=== PATIENT | male | born 1990 | race Caucasian/White ===

== ENCOUNTER 2017-11-18 09:49 | Emergency (ER) | payer BC ==
[2017-11-18 09:59] VITALS: BP 111/71
[2017-11-18] MEDS ORDERED: Sodium Chloride 0.9% 10 ML Syringe FLUSH PRN (10:22)
[2017-11-18] MEDS ORDERED: Sodium Chloride 0.9% 1,000 ML IV STA (10:22)
[2017-11-18] MEDS ORDERED: Ondansetron 4 MG/2 ML SDV IVPUSH ONE (10:22)
--- NOTE | 2017-11-18 10:29 | EDM.PDOC ---
ED HPI GENERAL MEDICAL PROBLEM - General Chief Complaint: Gastrointestinal Problem Stated Complaint: DIARRHEA AND GREEN COLORED URINE Time Seen by Provider: 11/18/17 09:58 Source of Information: Reports: Patient History Limitations: Reports: No Limitations - History of Present Illness INITIAL COMMENTS - FREE TEXT/NARRATIVE: The patient presents with nausea and diarrhea. This started 2 days ago. He has chills but no fever. He has green diarrhea and green urine. He has no appetite and he is drinking and eating less. He has some soreness in his abdomen but no real pain. He did not eat any bad food that he knows of. There has been a few people who were sick. He works at the [employer]. He has no dysuria, cough, chest pain or shortness of breath. He has no medical problems. He did not travel outside of the country. Onset: Gradual Duration: Day(s): (2) Location: Reports: Abdomen Quality: Reports: Other (Soreness) Severity: Mild Improves with: Reports: None Worsens with: Reports: None Associated Symptoms: Reports: Fever/Chills, Nausea/Vomiting. Denies: Chest Pain , Cough, Headaches, Shortness of Breath - Related Data Allergies Allergy/AdvReac Type Severity Reaction Status Date / Time No Known Allergies Allergy Verified 11/18/17 09:59 Home Meds: Home Meds FLUoxetine [PROzac] 20 mg PO DAILY 10/31/14 [History] lamoTRIgine [Lamictal] 200 mg PO DAILY 10/31/14 [History] Memantine HCl [Namenda] 20 mg PO DAILY 11/18/17 [History] Ondansetron [Zofran ODT] 4 mg PO Q6H PRN #20 tab.dis 11/18/17 [Rx] buPROPion [buPROPion XL] 150 mg PO DAILY 11/18/17 [History] traZODone HCl [Trazodone HCl] 50 mg PO BEDTIME 11/18/17 [History] Past Medical History - Past Health History Medical/Surgical History: Denies Medical/Surgical History Psychiatric History: Reports: Anxiety, Depression, Other (See Below) Other Psychiatric History: history of alcoholism, borterline personal disorder Social & Family History - Tobacco Use Smoking Status *Q: Never Smoker - Caffeine Use Caffeine Use: Reports: Coffee - Recreational Drug Use Recreational Drug Use: No ED ROS GENERAL - Review of Systems Review Of Systems: See Below Constitutional: Reports: Chills. Denies: Fever HEENT: Reports: No Symptoms Respiratory: Reports: No Symptoms Cardiovascular: Reports: No Symptoms Endocrine: Reports: No Symptoms GI/Abdominal: Reports: Abdominal Pain (Soreness), Diarrhea, Nausea. Denies: Vomiting : Reports: No Symptoms Musculoskeletal: Reports: No Symptoms Skin: Reports: No Symptoms ED EXAM, GI/ABD - Physical Exam Exam: See Below Exam Limited By: No Limitations General Appearance: Alert, No Apparent Distress Ears: Normal External Exam Nose: Normal Inspection Head: Atraumatic, Normocephalic Neck: Normal Inspection Respiratory/Chest: No Respiratory Distress, Lungs Clear, Normal Breath Sounds Cardiovascular: Regular Rate, Rhythm, No Edema, No Murmur GI/Abdominal Exam: Soft, Non-Tender, No Organomegaly, No Mass, Abnormal Bowel Sounds (Hyperactive) Back Exam: Normal Inspection Extremities: Normal Inspection Neurological: Alert, Oriented, No Motor/Sensory Deficits Course - Vital Signs Last Recorded V/S: Last Vital Signs Temp 97.9 F 11/18/17 09:57 Pulse 55 L 11/18/17 09:57 Resp 16 11/18/17 09:57 BP 111/71 11/18/17 09:57 Pulse Ox 98 11/18/17 09:57 - Orders/Labs/Meds Orders: Active Orders 24 hr Category Date Time Status Peripheral IV Care [RC] . DIRECTED Care 11/18/17 10:22 Active UA W/O MICROSCOPIC [URIN] Stat Lab 11/18/17 11:35 Ordered Sodium Chloride 0.9% [Saline Flush] Med 11/18/17 10:22 Active 10 ml FLUSH ASDIRECTED PRN ED Antiemetic Medication Reflex [OM.PC] Stat Oth 11/18/17 10:22 Ordered Peripheral IV Insertion Adult [OM.PC] Stat Oth 11/18/17 10:22 Ordered Medication Orders Sodium Chloride (Saline Flush) 10 ml FLUSH ASDIRECTED PRN PRN Reason: Keep Vein Open Last Admin: 11/18/17 10:35 Dose: 10 ml Labs: Laboratory Tests 11/18/17 11/18/17 11/18/17 Range/Units 10:35 10:35 11:35 WBC 4.90 (4.23-9.07) K/mm3 RBC 5.42 (4.63-6.08) M/mm3 Hgb 15.3 (13.7-17.5) gm/L Hct 46.0 (40.1-51.0) % MCV 84.9 (79.0-92.2) fl MCH 28.2 (25.7-32.2) pg MCHC 33.3 (32.2-35.5) g/dl RDW Std Deviation 43.3 (35.1-43.9) fL Plt Count 224 (163-337) K/mm3 MPV 8.9 L (9.4-12.3) fl Neut % (Auto) 50.8 (34.0-67.9) % Lymph % (Auto) 36.3 (21.8-53.1) % [place] % (Auto) 7.8 (5.3-12.2) % Eos % (Auto) 4.3 (0.8-7.0) Baso % (Auto) 0.6 (0.1-1.2) % Neut # (Auto) 2.49 (1.78-5.38) K/mm3 Lymph # (Auto) 1.78 (1.32-3.57) K/mm3 [place] # (Auto) 0.38 (0.30-0.82) K/mm3 Eos # (Auto) 0.21 (0.04-0.54) K/mm3 Baso # (Auto) 0.03 (0.01-0.08) K/mm3 Sodium 140 (136-145) mEq/L Potassium 4.0 (3.5-5.1) mEq/L Chloride 107 (98-107) mEq/L Carbon Dioxide 25 (21-32) mEq/L Anion Gap 12.0 (5-15) BUN 21 H (7-18) mg/dL Creatinine 1.0 (0.7-1.3) mg/dL Est Cr Clr Drug Dosing 101.90 mL/min Estimated GFR (MDRD) > 60 (>60) mL/min BUN/Creatinine Ratio 21.0 H (14-18) Glucose 97 (74-106) mg/dL Calcium 8.8 (8.5-10.1) mg/dL Total Bilirubin 0.3 (0.2-1.0) mg/dL AST 19 (15-37) U/L ALT 44 (16-63) U/L Alkaline Phosphatase 74 (46-116) U/L Total Protein 7.1 (6.4-8.2) g/dl Albumin 3.8 (3.4-5.0) g/dl Globulin 3.3 gm/dL Albumin/Globulin Ratio 1.2 (1-2) Lipase 98 (73-393) U/L Urine Color Yellow (Yellow) Urine Appearance Clear (Clear) Urine pH 6.0 (5.0-8.0) Ur Specific [place] > or = 1.030 (1.005-1.030) Urine Protein Negative (Negative) Urine Glucose (UA) Negative (Negative) Urine Ketones Negative (Negative) Urine Occult Blood Negative (Negative) Urine Nitrite Negative (Negative) Urine Bilirubin Negative (Negative) Urine Urobilinogen 0.2 (0.2-1.0) Ur Leukocyte Esterase Negative (Negative) Meds: Medications Generic Name Dose Route Start Last Admin Trade Name Freq PRN Reason Stop Dose Admin Sodium Chloride 10 ml 11/18/17 10:22 11/18/17 10:35 Saline Flush FLUSH 10 ml ASDIRECTED PRN Administration Keep Vein Open Discontinued Medications Generic Name Dose Route Start Last Admin Trade Name Freq PRN Reason Stop Dose Admin Sodium Chloride 1,000 mls @ 1,000 mls/hr 11/18/17 10:22 11/18/17 10:39 Normal Saline IV 11/18/17 11:21 1,000 mls/hr .BOLUS STA Administration Ondansetron HCl 4 mg 11/18/17 10:22 11/18/17 10:37 Zofran IVPUSH 11/18/17 10:23 4 mg ONETIME ONE Administration - Re-Assessments/Exams Free Text/Narrative Re-Assessment/Exam: 11/18/17 10:30 I ordered an IV NS 1L bolus, zofran 4mg IV, labs and UA. 11/18/17 11:52 His CBC and CMP look good. His UA looks good. He feels better. This is the 5th person in the past 2 days with this gastroenteritis. There is something going around. I will get him on some zofran, fluids and rest. Departure - Departure Time of Disposition: 11:55 Disposition: Home, Self-Care 01 Condition: Good Clinical Impression: Viral gastroenteritis - Discharge Information Prescriptions: Ondansetron [Zofran ODT] 4 mg PO Q6H PRN #20 tab.dis PRN Reason: Nausea\vomiting Referrals: Brett Wynn Jr, MD [Primary Care Provider] - Forms: ED Department Discharge, ED Return to Work/School Form Additional Instructions: Take the zofran as needed for nausea and vomiting. Drink plenty of fluids. Eat a bland diet and advance as tolerated over the next few days. Please return if you are worse. - My Orders Last 24 Hours: My Active Orders 11/18/17 10:22 Peripheral IV Care [RC] . DIRECTED Sodium Chloride 0.9% [Saline Flush] 10 ml FLUSH ASDIRECTED PRN ED Antiemetic Medication Reflex [OM.PC] Stat Peripheral IV Insertion Adult [OM.PC] Stat 11/18/17 11:35 UA W/O MICROSCOPIC [URIN] Stat - Assessment/Plan Last 24 Hours: My Active Orders 11/18/17 10:22 Peripheral IV Care [RC] . DIRECTED Sodium Chloride 0.9% [Saline Flush] 10 ml FLUSH ASDIRECTED PRN ED Antiemetic Medication Reflex [OM.PC] Stat Peripheral IV Insertion Adult [OM.PC] Stat 11/18/17 11:35 UA W/O MICROSCOPIC [URIN] Stat
== END 2017-11-18 12:10 | disposition home or self-care (01) ==
LOC: JD.ED 09:49
DX: A08.4 Viral intestinal infection, unspecified (principal); F41.9 Anxiety disorder, unspecified; F32.9 Major depressive disorder, single episode, unspecified; Z79.899 Other long term (current) drug therapy; F10.20 Alcohol dependence, uncomplicated
CPT/HCPCS: 36415; 80053; 81003; 83690; 85025; 96361; 96374; 99284; J2405; J7040; J7050

== ENCOUNTER 2018-09-22 19:47 | Emergency (ER) | payer BC ==
[2018-09-22 20:00] VITALS: BP 133/79
[2018-09-22] MEDS ORDERED: HYDROmorphone 1 MG/ML Syringe IM ONE (20:14)
--- NOTE | 2018-09-22 20:20 | EDM.PDOC ---
ED HPI GENERAL MEDICAL PROBLEM - General Chief Complaint: Lower Extremity Injury/Pain Stated Complaint: LEG INJURY Time Seen by Provider: 09/22/18 19:54 Source of Information: Reports: Patient, RN Notes Reviewed History Limitations: Reports: No Limitations - History of Present Illness INITIAL COMMENTS - FREE TEXT/NARRATIVE: Patient is a 28-year-old male who presents to the ED today with his mother for the evaluation of a left leg injury. He states that around 645 this evening he was chasing his dog in the park, as the dog got loose, when he jumped over a snowbank and got his leg caught in a drain grate. He states that his leg got stuck up to his left mcclure and thinks that his leg bent backwards at this point. He states he also did land on his right knee. He states that the right knee pain is not bothersome but the left leg pain is very severe. He would rate this at a 10 out of 10 and he states that the pain kind of comes and goes in waves when the pain is present he is unable to breathe due to the severity of the pain. He denies any numbness or tingling into his left extremity he is able to wiggle and move his toes, he denies any left ankle pain or left knee pain or left hip pain. There are no open wounds or lacerations. He did not take anything for pain medication as he came to the ER for evaluation as he states it is very painful to bear weight or move much on that leg at all. Left Leg Pain Score (Numeric/FACES): 10 - Related Data Allergies Allergy/AdvReac Type Severity Reaction Status Date / Time No Known Allergies Allergy Verified 09/22/18 20:00 Home Meds: Home Meds FLUoxetine [PROzac] 20 mg PO DAILY 10/31/14 [History] lamoTRIgine [Lamictal] 200 mg PO DAILY 10/31/14 [History] buPROPion [buPROPion XL] 150 mg PO DAILY 11/18/17 [History] traZODone HCl [Trazodone HCl] 50 mg PO BEDTIME 11/18/17 [History] Past Medical History - Past Health History Medical/Surgical History: Denies Medical/Surgical History Psychiatric History: Reports: Anxiety, Depression, Other (See Below) Other Psychiatric History: history of alcoholism, borterline personal disorder Social & Family History - Tobacco Use Smoking Status *Q: Never Smoker - Caffeine Use Caffeine Use: Reports: Coffee - Recreational Drug Use Recreational Drug Use: No Review of Systems - Review of Systems Review Of Systems: See Below Constitutional: Reports: No Symptoms Eyes: Reports: No Symptoms Ears: Reports: No Symptoms Nose: Reports: No Symptoms Mouth/Throat: Reports: No Symptoms Respiratory: Reports: No Symptoms Cardiovascular: Reports: No Symptoms GI/Abdominal: Reports: No Symptoms Genitourinary: Reports: No Symptoms Musculoskeletal: Reports: Leg Pain (left mid mcclure). Denies: Foot Pain, Joint Pain, Muscle Pain, Muscle Stiffness Skin: Denies: Cyanosis, Mottled, Pallor, Bruising ED EXAM, GENERAL - Physical Exam Exam: See Below Exam Limited By: No Limitations General Appearance: Alert, WD/WN, Mild Distress (When pain is present.) Eye Exam: Bilateral Eye: Normal Inspection Respiratory/Chest: No Respiratory Distress, Lungs Clear, Normal Breath Sounds, No Accessory Muscle Use, Chest Non-Tender Cardiovascular: Normal Peripheral Pulses, Regular Rate, Rhythm, No Murmur Peripheral Pulses: 3+: Popliteal (L), Posterior Tibial (L), Dorsalis Pedis (L) Back Exam: Normal Inspection, Full Range of Motion Extremities: Normal Inspection, Normal Range of Motion, Normal Capillary Refill , Leg Pain (Pain to even light touch over the mid mcclure area, small linear abrasion noted over this area, very mild ecchymosis noted). No: Pedal Edema, Joint Swelling, Mottled, Pallor Neurological: Alert, Oriented, Normal Cognition, Normal Reflexes, No Motor/ Sensory Deficits, Abnormal Gait (Limping gait, due to pain in left leg.) Psychiatric: Normal Affect, Normal Mood Skin Exam: Warm, Dry, No Rash, Ecchymosis (see extremities documentation). No: Cool, Cyanosis, Increased Warmth, Mottled, Pallor Course - Vital Signs Last Recorded V/S: Last Vital Signs Temp 97.4 F 09/22/18 19:57 Pulse 80 09/22/18 19:57 Resp 16 09/22/18 19:57 BP 133/79 09/22/18 19:57 Pulse Ox 99 09/22/18 19:57 - Orders/Labs/Meds Orders: Active Orders 24 hr Category Date Time Status Tibia Fibula Lt [CR] Stat Exams 09/22/18 20:06 Taken Meds: Medications Discontinued Medications Generic Name Dose Route Start Last Admin Trade Name Debby PRN Reason Stop Dose Admin Hydromorphone HCl 1 mg 09/22/18 20:14 09/22/18 20:26 Dilaudid IM 09/22/18 20:15 1 mg ONETIME ONE Administration - Re-Assessments/Exams Free Text/Narrative Re-Assessment/Exam: 09/22/18 20:23 Patient presents to the ED for the evaluation of left leg pain. I did order a left tib-fib x-ray for evaluation of a possible fracture of his left lower leg. He denies any pain into his ankle, knee, or hip. I did order 1 mg IM Dilaudid for pain relief. 09/22/18 20:48 Patient's x-ray did not demonstrate any sign of acute fracture, this was reviewed with Dr. Brady. We will discharge home with general recommendations. Departure - Departure Time of Disposition: 20:48 Disposition: Home, Self-Care 01 Condition: Fair Clinical Impression: Left leg pain - Discharge Information *PRESCRIPTION DRUG MONITORING PROGRAM REVIEWED*: No *COPY OF PRESCRIPTION DRUG MONITORING REPORT IN PATIENT VI: No Instructions: Muscle Strain, [id number] Referrals: Brett Wynn Jr, MD [Primary Care Provider] - Forms: ED Department Discharge Additional Instructions: You have been evaluated in the ED for your lower left leg pain. Your x-ray demonstrated no acute fracture of your left lower leg. Please use ice/heat as tolerated to the affected area. You may use pain relief rubs such as Aspercreme or BenGay to the area to see if this provides further relief. You may take tylenol 500 mg or ibuprofen 600mg q6 hrs for pain relief. Please do so until you have a tolerable level of pain with activity. Do not exceed 4000mg tylenol, Do not exceed 3200mg ibuprofen in a 24 hour time period. Please return to ED if your symptoms should change or worsen. - My Orders Last 24 Hours: My Active Orders 09/22/18 20:06 Tibia Fibula Lt [CR] Stat - Assessment/Plan Last 24 Hours: My Active Orders 09/22/18 20:06 Tibia Fibula Lt [CR] Stat
--- NOTE | 2018-09-23 08:16 | CR ---
Left tibia and fibula: AP and lateral views of the left tibia and fibula were obtained. Comparison: No prior tibia or fibula study. No fracture or other abnormality is appreciated. Impression: 1. No abnormality is appreciated on two-view left tibia and fibula study. Diagnostic code #1
== END 2018-09-22 21:00 | disposition home or self-care (01) ==
LOC: JD.ED 19:47
DX: M79.605 Pain in left leg (principal); Z79.899 Other long term (current) drug therapy
CPT/HCPCS: 73590; 96372; 99283; J1170

== ENCOUNTER 2019-10-02 19:04 | Emergency (ER) | payer BC ==
[2019-10-02 19:17] VITALS: BP 119/77; PULSE 97
--- NOTE | 2019-10-02 20:07 | EDM.PDOC ---
ED HPI GENERAL MEDICAL PROBLEM - General Chief Complaint: Respiratory Problem Stated Complaint: sob tightness of chest sore Time Seen by Provider: 10/02/19 19:08 Source of Information: Reports: Patient History Limitations: Reports: No Limitations - History of Present Illness INITIAL COMMENTS - FREE TEXT/NARRATIVE: This is a 29-year-old male. Since Friday he has been complaining of chest tightness into his shoulder seems to be constant dry cough and chills and possibly fever. He denies any sore throat he denies any significant nasal congestion. He denies any wheezing. He went by the [facility] for [place] it on and the results were negative on Friday. He was not tested for influenza. He arrives to the ER because he still feels short of breath and tightness in his lungs when he ties to take a deep breath. Temperature in the ER is 97 tonight. He has had no nausea and vomiting and no other acute symptoms. Bilateral Shoulder Pain Score (Numeric/FACES): 4 - Related Data Allergies Allergy/AdvReac Type Severity Reaction Status Date / Time No Known Allergies Allergy Verified 09/22/18 20:00 Home Meds: Home Meds FLUoxetine [PROzac] 20 mg PO DAILY 10/31/14 [History] lamoTRIgine [Lamictal] 100 mg PO DAILY 10/31/14 [History] buPROPion [buPROPion XL] 150 mg PO DAILY 11/18/17 [History] Albuterol Sulfate [Albuterol Sulfate Hfa] 8.5 gm IH Q6H PRN #1 hfa.[id number].ad [Rx] Memantine [Namenda] 10 mg PO DAILY 10/02/19 [History] hydrOXYzine HCL [Atarax] 25 mg PO Q6H PRN #20 tab 10/02/19 [Rx] Past Medical History - Past Health History Medical/Surgical History: Denies Medical/Surgical History Psychiatric History: Reports: Anxiety, Depression, Other (See Below) Other Psychiatric History: history of alcoholism, borterline personal disorder - Infectious Disease History Infectious Disease History: Reports: Chicken Pox - Past Surgical History HEENT Surgical History: Reports: Adenoidectomy, Tonsillectomy Social & Family History - Family History Family Medical History: Noncontributory - Tobacco Use Smoking Status *Q: Never Smoker Second Hand Smoke Exposure: No - Caffeine Use Caffeine Use: Reports: Coffee ED ROS GENERAL - Review of Systems Review Of Systems: See Below Constitutional: Reports: Chills. Denies: Fever, Malaise HEENT: Reports: No Symptoms Respiratory: Reports: Shortness of Breath, Cough. Denies: Wheezing, Sputum Cardiovascular: Reports: Other (Chest tightness) Endocrine: Reports: No Symptoms GI/Abdominal: Denies: Abdominal Pain, Diarrhea, Nausea, Vomiting : Reports: No Symptoms Musculoskeletal: Reports: No Symptoms Skin: Reports: No Symptoms Neurological: Reports: No Symptoms Psychiatric: Reports: No Symptoms Hematologic/Lymphatic: Reports: No Symptoms ED EXAM, GENERAL - Physical Exam Exam: See Below Exam Limited By: No Limitations General Appearance: Alert, WD/WN, No Apparent Distress Eye Exam: Bilateral Eye: Normal Inspection Ears: Normal External Exam, Normal Canal, Normal TMs Nose: No: Nasal Drainage, Clear Rhinorrhea Throat/Mouth: Normal Lips, Normal Voice, No Airway Compromise, Other (He denies any sore throat. He does sigh heavily frequently) Head: Normocephalic Neck: Supple Respiratory/Chest: No Respiratory Distress, Lungs Clear, Normal Breath Sounds Cardiovascular: Regular Rate, Rhythm, No Murmur GI/Abdominal: Soft Back Exam: Full Range of Motion Extremities: Normal Inspection, Normal Range of Motion Neurological: Alert, Oriented Psychiatric: Normal Affect, Normal Mood Skin Exam: Warm, Dry EKG INTERPRETATION EKG Date: 10/02/19 Time: 20:30 EKG Interpretation Comments: Normal sinus rhythm rate of 83. There are no acute ST or T wave changes or elevation and there is no acute ischemia noted. He does have a normal early repolarization pattern noted. Course - Vital Signs Last Recorded V/S: Last Vital Signs Temp 97.0 F 10/02/19 19:13 Pulse 97 10/02/19 19:13 Resp 16 10/02/19 19:13 BP 119/77 10/02/19 19:13 Pulse Ox 100 10/02/19 19:13 - Orders/Labs/Meds Orders: Active Orders 24 hr Category Date Time Status EKG 12 Lead [EKG Documentation Completion] [RC] STAT Care 10/02/19 19:32 Active Isolation [COMM] Routine Oth 10/02/19 20:22 Ordered Labs: Laboratory Tests 03/28/20 03/28/20 Range/Units 20:07 20:07 WBC 6.52 (4.23-9.07) K/mm3 RBC 5.66 (4.63-6.08) M/mm3 Hgb 16.0 (13.7-17.5) gm/dl Hct 46.9 (40.1-51.0) % MCV 82.9 (79.0-92.2) fl MCH 28.3 (25.7-32.2) pg MCHC 34.1 (32.2-35.5) g/dl RDW Std Deviation 41.7 (35.1-43.9) fL Plt Count 289 (163-337) K/mm3 MPV 8.9 L (9.4-12.3) fl Neut % (Auto) 51.3 (34.0-67.9) % Lymph % (Auto) 36.8 (21.8-53.1) % [place] % (Auto) 7.4 (5.3-12.2) % Eos % (Auto) 3.7 (0.8-7.0) Baso % (Auto) 0.6 (0.1-1.2) % Neut # (Auto) 3.35 (1.78-5.38) K/mm3 Lymph # (Auto) 2.40 (1.32-3.57) K/mm3 [place] # (Auto) 0.48 (0.30-0.82) K/mm3 Eos # (Auto) 0.24 (0.04-0.54) K/mm3 Baso # (Auto) 0.04 (0.01-0.08) K/mm3 Sodium 140 (136-145) mEq/L Potassium 3.9 (3.5-5.1) mEq/L Chloride 105 (98-107) mEq/L Carbon Dioxide 21 (21-32) mEq/L Anion Gap 17.9 H (5-15) BUN 19 H (7-18) mg/dL Creatinine 1.0 (0.7-1.3) mg/dL Est Cr Clr Drug Dosing 96.59 mL/min Estimated GFR (MDRD) > 60 (>60) mL/min BUN/Creatinine Ratio 19.0 H (14-18) Glucose 94 (74-106) mg/dL Calcium 9.2 (8.5-10.1) mg/dL Total Bilirubin 0.4 (0.2-1.0) mg/dL AST TNP ALT 99 H (16-63) U/L Alkaline Phosphatase 111 (46-116) U/L Troponin I < 0.017 (0.00-0.056) ng/mL Total Protein 7.7 (6.4-8.2) g/dl Albumin 4.1 (3.4-5.0) g/dl Globulin 3.6 gm/dL Albumin/Globulin Ratio 1.1 (1-2) - Radiology Interpretation Free Text/Narrative:: X-ray does not show any acute infiltrates - Re-Assessments/Exams Free Text/Narrative Re-Assessment/Exam: 10/02/19 21:32 Spoke to the patient regarding his negative chest x-ray and his negative flu and that his heart checks out to be just fine. I made him aware that he is sighing persistently and that that is a sign of some anxiety. He then admitted that he is anxious about situations going on. I explained that that will make him feel like he is not getting enough air despite being anxious. I will provide a albuterol inhaler as well as some hydroxyzine which I will electronically submit to the clinical pharmacy for him to fiber picker on Friday. The patient is good with this. Departure - Departure Time of Disposition: 21:34 Disposition: Home, Self-Care 01 Condition: Good Clinical Impression: Shortness of breath, Anxiety, generalized - Discharge Information *PRESCRIPTION DRUG MONITORING PROGRAM REVIEWED*: Not Applicable *COPY OF PRESCRIPTION DRUG MONITORING REPORT IN PATIENT VI: Not Applicable Prescriptions: Albuterol Sulfate [Albuterol Sulfate Hfa] 8.5 gm IH Q6H PRN #1 hfa.aer.ad PRN Reason: Wheezing hydrOXYzine HCL [Atarax] 25 mg PO Q6H PRN #20 tab PRN Reason: Anxiety Instructions: Shortness of Breath, Adult, [id number], Generalized Anxiety Disorder, Adult Referrals: Brett Wynn Jr, MD [Primary Care Provider] - Forms: ED Department Discharge, ED Return to Work/School Form Additional Instructions: Call Clinic pharmacy tomorrow morning about picking up your prescriptions, use the inhaler as needed when you feel chest tightness or wheezing, use the hydroxyzine as needed for the anxiety and increase sighing, rest, sleep, relax, stay at home and continue with social distancing during this time, follow-up with your family doctor early next week if it seems like your symptoms are worsening, return to the ER as needed Sepsis Event Note - Evaluation Sepsis Screening Result: No Definite Risk - Focused Exam Vital Signs: Vital Signs Temp Pulse Resp BP Pulse Ox 10/02/19 19:13 97.0 F 97 16 119/77 100 Date Exam was Performed: 10/02/19 Time Exam was Performed: 21:32 - My Orders Last 24 Hours: My Active Orders 10/02/19 19:32 EKG 12 Lead [EKG Documentation Completion] [RC] STAT 10/02/19 20:22 Isolation [COMM] Routine - Assessment/Plan Last 24 Hours: My Active Orders 10/02/19 19:32 EKG 12 Lead [EKG Documentation Completion] [RC] STAT 10/02/19 20:22 Isolation [COMM] Routine
--- NOTE | 2019-10-02 20:22 | CR ---
Chest: 2 views of the chest were obtained. Comparison: No previous chest imaging is available. Heart size and mediastinum are normal. Lungs are clear with no acute parenchymal change. Bony structures are unremarkable. Impression: 1. Nothing acute is seen on 2 view chest x-ray. Diagnostic code #1 Study was dictated in MDT
== END 2019-10-02 21:49 | disposition home or self-care (01) ==
LOC: JD.ED 19:04
DX: F41.1 Generalized anxiety disorder (principal); F32.9 Major depressive disorder, single episode, unspecified; Z79.899 Other long term (current) drug therapy
CPT/HCPCS: 36415; 71046; 71046-26; 80053; 84484; 85025; 87804; 93005; 93010; 99283; 99285-25